=== PATIENT | male | born 1940 | race Caucasian/White ===

== ENCOUNTER 2021-05-05 14:00 | Emergency (ER) | payer OTHER, MEDICARE, SELFPAY ==
[2021-05-05 14:03] VITALS: BP 148/110; PULSE 97; RESP 16; TEMP 37.1; O2SAT 98; BMI 25.9
--- NOTE | 2021-05-05 14:47 | EKG12_ITS ---
Test Reason : CP Blood Pressure : / mmHG Vent. Rate : 091 BPM Atrial Rate : 256 BPM P-R Int : 000 ms QRS Dur : 078 ms QT Int : 358 ms P-R-T Axes : 000 036 047 degrees QTc Int : 440 ms Atrial flutter with variable A-V block Nonspecific ST and T wave abnormality Abnormal ECG Confirmed by BYRON SILVERIO, ORALIA ([id number]), features editor LON HAGEN ([id number]) on 05/08/2021 10:00:35 AM Referred By: KATELYNN Confirmed By:ORALIA MATTHEWS MD
--- NOTE | 2021-05-05 14:48 | ED.VIS.CHEST ---
HPI History of Present Illness Chief Complaint: Chest Pain Informant: patient Onset/Context/Timing Onset: Today Activity at onset: - (Woke up with symptoms this morning more than 3 hours ago) Timing: Continuous Quality: Positive for Aching Location: Right Parasternal Current Severity: Moderate Maximum Severity: Moderate Worsened By: Breathing (Deep inspiration); Not Worsened By Exertion Relieved By: Nothing Associated Symptoms: Positive for Acid Reflux (Gets frequently including last night before he went to bed) and - (Had chills earlier but was in air conditioning); Negative for Nausea, Vomiting, Diaphoresis, Dyspnea, Cough, Lightheadedness and Palpitations Narrative Narrative: Patient states he had surgery almost 1.5 years ago in his abdomen and has had reflux going from his epigastrium up his chest since then almost daily he takes a lot of Mylanta or Maalox and Pepto-Bismol for it, and so he is constipated most of the time, states that he frequently has chest discomfort because of that but this was different this morning. It has somewhat of a pleuritic nature to it, he denies any dyspnea. No recent hospitalization, travel out of the area, surgery. No history of DVT or PE. Takes a baby aspirin because he had a stent 5 or 6 years ago, but no anticoagulants. States he had a minor cough this morning but nothing major, denies any recent fevers or chills. PE Risk Factors: Negative for Recent Travel/Surgery, Recent Immobilization, Prior DVT or PE, Cancer and OCP + Smoking + >/=35 PFSH PFSH Medical History (Updated 05/05/21 @ 17:[address] Nicanor Stout MD) CAD (coronary artery disease) Depression Hyperlipidemia Hypertension Overweight (BMI 25.0-29.9) Posttraumatic stress disorder Stage 3b chronic kidney disease Home Medications amoxicillin-pot clavulanate [Augmentin] 1 tab PO BID #20 tab 05/05/21 [Rx Last Taken Unknown] apixaban [Eliquis] 5 mg PO BID #74 tab 05/05/21 [Rx Last Taken Unknown] aspirin 81 mg PO DAILY 05/05/21 [History Last Taken 05/05/21] atenolol 50 mg PO DAILY 05/05/21 [History Last Taken 05/05/21] bupropion HCl 150 mg PO BID 05/05/21 [History Last Taken 05/05/21] cholecalciferol (vitamin D3) [Vitamin D3] 100 mcg PO DAILY 05/05/21 [History Last Taken 05/05/21] diltiazem HCl 300 mg PO DAILY 05/05/21 [History Last Taken Unknown] losartan 25 mg PO DAILY 05/05/21 [History Last Taken 05/04/21] potassium chloride 10 meq PO DAILY 05/05/21 [History Last Taken 05/05/21] sertraline 50 mg PO DAILY 05/05/21 [History Last Taken 05/05/21] simvastatin 80 mg PO DAILY 05/05/21 [History Last Taken 05/04/21] tramadol 50 mg PO TID PRN 05/05/21 [History Last Taken 05/04/21] trazodone 50 mg PO DAILY 05/05/21 [History Last Taken 05/04/21] vitamin Y34-[id number] acid 1 tab PO DAILY 05/05/21 [History Last Taken 05/05/21] zolpidem 10 mg PO QHS 05/05/21 [History Last Taken 05/04/21] Allergy/AdvReac Type Severity Reaction Status Date / Time atorvastatin Allergy Itching Verified 05/05/21 14:02 Surgical History Stented coronary artery Social History Smoking Status: Never smoker ROS ROS ED Constitutional Constitutional ED: Denies chills or fever(s) Eyes Eyes: Denies change in vision or diplopia ENT ENT ED: Denies rhinorrhea or sore throat Cardiovascular Cardiovascular: Reports as per HPI and chest pain; Denies dizziness, orthopnea, palpitations or pedal edema Respiratory/Chest Respiratory/Chest: Reports as per HPI and cough; Denies dyspnea or orthopnea Gastrointestinal Gastrointestinal: Denies abdominal pain, diarrhea, nausea or vomiting Genitourinary Genitourinary ED: Denies dysuria or hematuria Musculoskeletal Musculoskeletal: Denies back pain, extremity pain or neck pain Integumentary Denies abscess or rash Neurologic Neurologic: Denies headache(s), paresthesias or weakness Psychiatric Psychiatric: Denies anxiety or suicidal thoughts EXAM Physical Exam Const Vital Signs: 05/05/21 14:03 05/05/21 14:08 05/05/21 14:49 Temperature 98.8 F Temperature Source Temporal Pulse Rate 97 Respiratory Rate 16 Respiratory Effort Normal Non-Labored Blood Pressure 148/110 H Blood Pressure Mean 122 Pulse Ox 98 Oxygen Delivery Method Room Air Room Air 05/05/21 15:23 05/05/21 16:34 05/05/21 17:15 Temperature Temperature Source Pulse Rate 73 69 72 Respiratory Rate 20 H 19 H 18 Respiratory Effort Blood Pressure 113/78 128/59 H 120/64 Blood Pressure Mean 89 82 82 Pulse Ox 97 97 97 Oxygen Delivery Method Room Air Room Air Room Air Positive well nourished and well developed General Appearance ED: well developed and NAD HEENT Reports moist mucous membranes normocephalic and atraumatic Eyes PERRL and EOMs intact bilaterally Neck full ROM and supple Resp normal respiratory effort and clear to auscultation bilaterally Cardio no murmurs Rate: other Other Details: Heart rate not tachycardic; rhythm occasionally irregular but mostly regular Rhythm: abnormal rhythm GI non-tender and non-distended Auscultation: normoactive bowel sounds Palpation: soft Back/Spine no CVA tenderness General Back: other FROM Extremity normal to inspection, no calf tenderness and no pedal edema General Extremety ED: Negative for edema, pulses abnormal or tenderness General Extremity: Negative for edema or pulses abnormal Neuro oriented x3, CN's II-XII intact bilaterally and no sensory deficits noted Sensorium / Orientation: awake and alert Motor Exam: strength 5/5 throughout Skin no rashes or lesions noted and no wounds Heart Score History: Slightly/Non-Suspicious ECG: Nonspecific Repolarization Age: >/= 65 years Risk Factors: >/= 3 Risk Factors or History of CAD Troponin: </= Normal Limit Score: 5 MDM MDM MDM Narrative Medical decision making narrative: Troponin is normal D-dimer elevated, which was ordered since the patient has pleuritic symptoms. Chest x-ray shows concern for a mass, so CT angiography was performed to rule out pulmonary embolism to further evaluate the abnormality on the right upper lobe. As below, consistent with infiltrate. Started on antibiotics, Rocephin. He is well-appearing, meets no criteria for sepsis, therefore cultures and lactic acid are not indicated at this time. Discussed with cardiology Dr. Molina; since patient is on metoprolol and diltiazem, which is likely responsible for him being rate controlled, and agrees that his chest discomfort is likely related to his pneumonia and not his heart, the patient may follow-up as an outpatient unless something changes. I do not think he needs to be admitted with regards to his pneumonia. Therefore I am comfortable discharging him on Eliquis since he is not a high fall risk clinically. We will discharge him on Augmentin and Eliquis, advised close outpatient follow-up with his doctor with regards to his pneumonia for recheck of his vital signs and pulse oximetry, as well as cardiology as above. Patient is comfortable with that plan. Lab Data Attestation: I reviewed the patient's lab results. Labs: Laboratory Results - last 24 hr 05/05/21 05/05/21 05/05/21 14:08 14:08 14:57 WBC 17.6 H RBC 4.64 Hgb 12.5 L Hct 39.0 L MCV 84.1 MCH 26.9 L MCHC 32.1 RDW Std Deviation 39.9 RDW Coeff of [place]ona 13.1 Plt Count 233 MPV 9.9 Immature Gran % (Auto) 0.700 Neut % (Auto) 88.6 H Lymph % (Auto) 3.6 L [place] % (Auto) 6.8 Eos % (Auto) 0.1 Baso % (Auto) 0.2 Absolute Neuts (auto) 15.6 H Absolute Lymphs (auto) 0.64 L Nucleated RBC % 0 APTT 28.5 D-Dimer Quant (PE/DVT) 1.61 H* Sodium 132 L Potassium 3.7 Chloride 100 Carbon Dioxide 26.0 Anion Gap 6 BUN 14 Creatinine 1.48 H Estim Creat Clear Calc 37.12 Est GFR (MDRD) Af Amer 59 L Est GFR (MDRD) Non-Af 49 L BUN/Creatinine Ratio 9.5 L Glucose 176 H Calcium 8.2 L Troponin I High Sens 27.8 Radiography Diagnostic Testing: Radiology Impression Chest X-Ray 05/05/21 14:54 IMPRESSION: 5.5 cm x 6.6 cm masslike infiltrate in the right upper lobe as described. Correlation with CT scan is recommended for further evaluation. Electronically Signed: Bong Leone MD at 15:17 EDT , Service support , Chest CTA 05/05/21 15:53 IMPRESSION: 1. No evidence of pulmonary embolus. 2. Atherosclerotic changes of the thoracic aorta without aneurysm or dissection. 3. Mixed interstitial and alveolar right upper lobe pulmonary infiltrate. 4. Minimal groundglass infiltrates in both lower lobes. 5. Atherosclerotic changes of the coronary arteries. 6. Evidence of old granulomatous disease. Electronically Signed: Olvin Doll DO at 16:41 EDT Tel [phone], Service support , EKG Initial EKG: Interpretation: No Acute Injury Pattern and Atrial Flutter Prior: No Prior Discharge Plan Triage Chief Complaint: Chest Pain ED Provider: Nicanor Stout Dx/Rx/DC Orders Clinical Impression: Atrial flutter, Pneumonia Instructions: ED Atrial Flutter, ED Pneumonia (Adult) Prescriptions: New Eliquis 5 MG tablet 5 mg PO BID Qty: 74 RF: 0 amoxicillin-pot clavulanate [Augmentin] 875-125 mg tablet 1 tab PO BID Qty: 20 RF: 0 No Action bupropion HCl 150 mg Tablet Sustained-Release 12 Hr 150 mg PO BID RF: 0 potassium chloride 10 mEq capsule, extended release 10 meq PO DAILY RF: 0 trazodone 50 mg Tablet 50 mg PO DAILY RF: 0 simvastatin 80 mg Tablet 80 mg PO DAILY RF: 0 tramadol 50 mg Tablet 50 mg PO TID PRN (Reason: Pain) RF: 0 losartan 25 mg Tablet 25 mg PO DAILY RF: 0 aspirin 81 mg Tablet 81 mg PO DAILY RF: 0 sertraline 50 mg Tablet 50 mg PO DAILY RF: 0 atenolol 50 mg Tablet 50 mg PO DAILY RF: 0 Vitamin D3 100 mcg (4,000 unit) Capsule 100 mcg PO DAILY RF: 0 vitamin G08-sueau acid 2,500-400 mcg Tablet,Disintegrating 1 tab PO DAILY RF: 0 zolpidem 10 mg tablet 10 mg PO QHS RF: 0 diltiazem HCl 300 mg tablet extended release 24 hr 300 mg PO DAILY RF: 0 Primary Care Provider: Christian Robbins Referrals: Christian Robbins MD [Primary Care Provider] - 3-5 Days (for recheck of vital signs and condition with regards to your right sided pneumonia) Matt Molina MD [STAFF PHYSICIAN] - (call for appt ) Disposition Disposition: Home, Self Care
--- NOTE | 2021-05-05 14:54 | RAD_ITS ---
STUDY: X-RAY CHEST REASON FOR EXAM: Male, 80 years old. Chest pain TECHNIQUE: Single AP portable view of the chest. COMPARISON: None. FINDINGS: EKG electrodes are seen. There is a 5.5 cm x 6.6 cm masslike lesion in the right upper lobe. This may represent either a pulmonary mass versus infiltrate. Mild increased markings in the lateral aspect of the right lower lobe with blunting of the right costophrenic angle. The lungs are clear and expanded. There is no demonstrated pleural abnormality. Normal size heart. Normal mediastinum and hansel. Normal visualized pulmonary arteries. Normal visualized aortic arch and descending thoracic aorta. Normal visualized thoracic spine. Normal visualized ribs, clavicles, and shoulders. There is no demonstrated abnormality of the visualized soft tissue structures of the upper abdomen. RAD/Chest 1 View (Portable) IMPRESSION: 5.5 cm x 6.6 cm masslike infiltrate in the right upper lobe as described. Correlation with CT scan is recommended for further evaluation. Electronically Signed: Bong Leone MD at 15:17 EDT , Service support ,
[2021-05-05 14:58] LABS: Absolute Lymphocyte Count 0.64 X10^3/uL (0.83-4.51); Absolute Neutrophil Count 15.6 X10^3/uL (2.0-7.7); Basophil# 0.04 X10^3/uL; Basophil% 0.2 % (0-1); Eosinophil# 0.02 X10^3/uL; Eosinophils% 0.1 % (0-5); Hemoglobin 12.5 g/dL (13.0-16.5); Lymphocyte # 0.64 X10^3/ul (0.83-4.51); Lymphocyte % 3.6 % (19-41); Mean Corp Hgb Conc 32.1 g/dL (32-36); Mean Corpuscular Hgb 26.9 pg (27.0-32.0); Mean Corpuscular Volume 84.1 fL (80-94); Mean Platelet Vol. 9.9 fl (6.2-12.0); Monocyte# 1.19 X10^3/uL; Monocyte% 6.8 % (0-10); NRBC Flagged by Analyzer 0 % (0-5); Neutrophil # 15.55 X10^3/uL (2.7-7.7); Neutrophil % 88.6 % (47-70); Platelet Count 233 K/mm3 (150-450); RBC Distribution Width CV 13.1 % (11.6-14.6); RBC Distribution Width SD 39.9 fl (35.1-43.9); Red Blood Count 4.64 M/mm3 (4.6-6.2); White Blood Count 17.6 K/mm3 (4.4-11.0)
[2021-05-05] MEDS: 0.9% Normal Saline 1,000 ML 150 ML IV (15:09)
[2021-05-05 15:10] LABS: Anion Gap 6 (5-15); BUN 14 mg/dL (7-18); BUN/Creat Ratio 9.5 RATIO (10-20); Calcium,Total 8.2 mg/dL (8.5-10.1); Chloride 100 mmol/L (98-107); Creatinine, Serum 1.48 mg/dL (0.70-1.30); EST Glomerular Filtration Rate 49 mL/min (>60); Est Glom Filt Rate - Afr Amer 59 mL/min (>60); Estimated Creatinine Clearance 37.12 ml/min; Glucose 176 mg/dL (74-106); Potassium 3.7 mmol/L (3.5-5.1); Sodium Level 132 mmol/L (136-145); Troponin-I HS 27.8 pg/mL (3.0-78.5)
[2021-05-05 15:12] LABS: Partial Thromboplast Time 28.5 Seconds (24.1-36.2)
[2021-05-05 15:16] LABS: D-Dimer Quantitative (DVT/PE) 1.61 FEU/ug/m (0.27-0.49)
[2021-05-05 15:23] VITALS: BP 113/78; PULSE 73; RESP 20; O2SAT 97
--- NOTE | 2021-05-05 15:53 | CT_ITS ---
STUDY: CTA CHEST REASON FOR EXAM: Male, 80 years old. Chest pain. Abnormal d-dimer. Abnormal chest x-ray. RADIATION DOSAGE (If Supplied By Facility): CTDIvol = ( 12.87 ) mGy, DLP = ( 360.94 ) mGycm TECHNIQUE: The examination was performed with the intravenous administration of IV 100mL Isovue-370. Post-processing of the angiographic images was performed, with multiplanar reformation and 3D reconstruction. Individualized dose optimization techniques were used for this CT. COMPARISON: Chest, 05/05/2021. FINDINGS: Normal enhancement of the main pulmonary artery and right and left pulmonary arteries. Normal enhancement of the bilateral peripheral pulmonary arteries. There is no demonstrated pulmonary embolism. Mild atherosclerotic changes of the thoracic aorta without aneurysm. There is no demonstrated aortic dissection. Normal heart and pericardium. There are calcifications of the coronary arteries. There are calcified precarinal and subcarinal lymph nodes. Normal hilar regions. Normal visualized trachea and bronchi. The lungs are well expanded. There is diffuse interstitial and alveolar infiltrates in the right upper lobe. There is no focal mass. Minimal groundglass infiltrate is seen in the anterior bilateral lower lobes along the oblique fissures. Normal pleura. Normal chest wall structures. There are degenerative changes of thoracic spine. There are calcified granulomata in spleen. Tiny nonobstructing calculus in the upper right kidney. The upper abdomen is otherwise grossly normal. CT/CTA Chest W/WO Contrast IMPRESSION: 1. No evidence of pulmonary embolus. 2. Atherosclerotic changes of the thoracic aorta without aneurysm or dissection. 3. Mixed interstitial and alveolar right upper lobe pulmonary infiltrate. 4. Minimal groundglass infiltrates in both lower lobes. 5. Atherosclerotic changes of the coronary arteries. 6. Evidence of old granulomatous disease. Electronically Signed: Olvin Doll DO at 16:41 EDT Tel [phone], Service support ,
--- NOTE | 2021-05-05 16:08 | HP.PCM.HOS_ITS ---
HPI - General HPI Narrative ALEXANDRA FERREIRA, is a 80 M who presented with the chief complaint of chest pain. The patient reported on admission that he woke with the symptoms approximately 3 hours prior to presentation and he has had continuous aching right parasternal pain that is pleuritic in nature. He reports deep breathing exacerbates his symptoms and they are not exertional at all. He has had no relief of his pain since it started this morning. He denies any recent hospitalizations, travel, surgery, dyspnea, diaphoresis, nausea or vomiting. He has a long history of GERD and epigastric pain since he had an abdominal surgery approximately 1.5 years ago but the symptoms are significantly different. He does have a history of coronary artery disease and had a stent placed 5 to 6 years ago. He complains of a mild cough that is nonproductive and that was present this morning on awakening as well. FORMERLY [facility], 1928–1983 Medical History (Updated 05/05/21 @ 16:[address] Kim Dodson DO) CAD (coronary artery disease) Depression Hyperlipidemia Hypertension Overweight (BMI 25.0-29.9) Posttraumatic stress disorder Stage 3b chronic kidney disease Home Medications aspirin 81 mg PO DAILY 05/05/21 [History Last Taken 05/05/21] atenolol 50 mg PO DAILY 05/05/21 [History Last Taken 05/05/21] bupropion HCl 150 mg PO BID 05/05/21 [History Last Taken 05/05/21] cholecalciferol (vitamin D3) [Vitamin D3] 100 mcg PO DAILY 05/05/21 [History Last Taken 05/05/21] diltiazem HCl 300 mg PO DAILY 05/05/21 [History Last Taken Unknown] losartan 25 mg PO DAILY 05/05/21 [History Last Taken 05/04/21] potassium chloride 10 meq PO DAILY 05/05/21 [History Last Taken 05/05/21] sertraline 50 mg PO DAILY 05/05/21 [History Last Taken 05/05/21] simvastatin 80 mg PO DAILY 05/05/21 [History Last Taken 05/04/21] tramadol 50 mg PO TID PRN 05/05/21 [History Last Taken 05/04/21] trazodone 50 mg PO DAILY 05/05/21 [History Last Taken 05/04/21] vitamin A41-nffvj acid 1 tab PO DAILY 05/05/21 [History Last Taken 05/05/21] zolpidem 10 mg PO QHS 05/05/21 [History Last Taken 05/04/21] Allergy/AdvReac Type Severity Reaction Status Date / Time atorvastatin Allergy Itching Verified 05/05/21 14:02 Surgical History Stented coronary artery Social History Smoking Status: Never smoker Vital Signs Vital Signs Vital Signs: 05/05/21 14:03 05/05/21 14:08 05/05/21 14:49 Temperature 98.8 F Temperature Source Temporal Pulse Rate 97 Respiratory Rate 16 Respiratory Effort Normal Non-Labored Blood Pressure 148/110 H Blood Pressure Mean 122 Pulse Ox 98 Oxygen Delivery Method Room Air Room Air 05/05/21 15:23 Temperature Temperature Source Pulse Rate 73 Respiratory Rate 20 H Respiratory Effort Blood Pressure 113/78 Blood Pressure Mean 89 Pulse Ox 97 Oxygen Delivery Method Room Air Weight Weight: 72.8 kg Body Mass Index (BMI) 25.9 Results Lab / Micro Data Attestation: I reviewed the patient's lab results. Result Diagrams: 05/05/21 14:08 05/05/21 14:08 Labs: Laboratory Results - last 24 hr 05/05/21 14:08: WBC 17.6 H, RBC 4.64, Hgb 12.5 L, Hct 39.0 L, MCV 84.1, MCH 26.9 L, MCHC 32.1, RDW Std Deviation 39.9, RDW Coeff of Leona 13.1, Plt Count 233, MPV 9.9, Immature Gran % (Auto) 0.700, Neut % (Auto) 88.6 H, Lymph % (Auto) 3.6 L, [place] % (Auto) 6.8, Eos % (Auto) 0.1, Baso % (Auto) 0.2, Absolute Neuts (auto) 15.6 H, Absolute Lymphs (auto) 0.64 L, Nucleated RBC % 0 05/05/21 14:08: Sodium 132 L, Potassium 3.7, Chloride 100, Carbon Dioxide 26.0, Anion Gap 6, BUN 14, Creatinine 1.48 H, Estim Creat Clear Calc 37.12, Est GFR (MDRD) Af Amer 59 L, Est GFR (MDRD) Non-Af 49 L, BUN/Creatinine Ratio 9.5 L, Glucose 176 H, Calcium 8.2 L, Troponin I High Sens 27.8 05/05/21 14:57: APTT 28.5, D-Dimer Quant (PE/DVT) 1.61 H* Radiology Impression Chest X-Ray 05/05/21 14:54 IMPRESSION: 5.5 cm x 6.6 cm masslike infiltrate in the right upper lobe as described. Correlation with CT scan is recommended for further evaluation. Electronically Signed: Bong Leone MD at 15:17 EDT , Service support , Assessment & Plan Assessment/Plan (1) Leukocytosis: (2) Anemia: (3) Elevated d-dimer: (4) Hyponatremia: (5) Stage 3b chronic kidney disease: (6) Insomnia: (7) Hyperlipidemia: (8) Hyperglycemia: PLAN: Right upper lobe community-acquired pneumonia -Start a Zithromax and ceftriaxone -Sputum culture if able -Urine Legionella and strep pneumo antigens -IS -Acapella -Pulmonary toilet -Pulmonal oxygen as needed D-dimer elevation -CTA chest on emergency department shows--> large right upper lobe infiltrate Hyponatremia -May be related to the above -Does appear to be euvolemic at this time -Check urine and serum osmolality as well as urine sodium--> if does not trend up -Most likely related to pulmonary process Hyperglycemia -No diagnosis of diabetes at baseline -Check hemoglobin A1c -Blood glucose on BMP was 176 Leukocytosis CAD/HTN/HPL/atrial flutter -Stents placed 5 to 6 years ago--> patient unclear which arteries were stented and the procedure was not performed at this institution -Continue aspirin -Continue atenolol 50 mg daily -Continue diltiazem 300 mg p.o. daily -Continue losartan 25 mg daily -Continue simvastatin -EKG done and shows--> -High-sensitivity troponin is within normal limits History of post traumatic stress disorder -Continue Zoloft 50 mg -Continue trazodone 50 mg -Continue Wellbutrin 150 mg twice daily Insomnia -Continue Ambien DVT prophylaxis - CODE STATUS -
[2021-05-05] MEDS: 0.9% Normal Saline 1,000 ML 999 ML IV (16:32)
[2021-05-05 16:34] VITALS: BP 128/59; PULSE 69; RESP 19; O2SAT 97
[2021-05-05 17:15] VITALS: BP 120/64; PULSE 72; RESP 18; O2SAT 97
[2021-05-05] MEDS: Ceftriaxone 1 GM/50 ML BAG IV (17:38)
[2021-05-05 18:12] VITALS: BP 105/59; PULSE 84; RESP 20; O2SAT 99
[2021-05-05 18:22] LABS: Thyroid Stim Hormone (TSH) 2.38 uIU/mL (0.358-3.74)
== END 2021-05-05 18:24 | disposition home or self-care (01) ==
PROVIDERS: Emergency Provider Emergency Medicine; PCP Family Medicine
DX: J18.9 Pneumonia, unspecified organism (principal); I48.92 Unspecified atrial flutter; R79.1 Abnormal coagulation profile; E87.1 Hypo-osmolality and hyponatremia; R73.9 Hyperglycemia, unspecified; D72.829 Elevated white blood cell count, unspecified; F43.10 Post-traumatic stress disorder, unspecified; G47.00 Insomnia, unspecified; I25.10 Atherosclerotic heart disease of native coronary artery without angina pectoris; F32.9 Major depressive disorder, single episode, unspecified; E78.5 Hyperlipidemia, unspecified; I12.9 Hypertensive chronic kidney disease with stage 1 through stage 4 chronic kidney disease, or unspecified chronic kidney disease; N18.32 Chronic kidney disease, stage 3b; Z95.5 Presence of coronary angioplasty implant and graft; Z79.02 Long term (current) use of antithrombotics/antiplatelets; Z79.899 Other long term (current) drug therapy
CPT/HCPCS: 71045; 71275; 80048; 84443; 84484; 85025; 85379; 85730; 93005; 96361; 96365; 99283; J7030; Q9967; A4216

== ENCOUNTER 2022-06-02 22:50 | Emergency (ER) | payer OTHER, SELFPAY ==
[2022-06-02 22:51] VITALS: BP 130/78; PULSE 92; RESP 18; TEMP 37.3; O2SAT 99; BMI 24.3
--- NOTE | 2022-06-02 23:17 | RAD_ITS ---
STUDY: X-RAY - PELVIS AND LEFT HIP REASON FOR EXAM: Male, 81 years old. pain TECHNIQUE: 3 views of the pelvis and hip. COMPARISON: None. FINDINGS: Mild degenerative change of the left hip. No acute fracture or dislocation. Degenerative change of the lower lumbar spine and right hip RAD/HIP, UNI W/ Pelvis 2-3 Views IMPRESSION: No acute findings Electronically Signed: Boogie Crow DO at 0:17 EDT ,
--- NOTE | 2022-06-02 23:17 | RAD_ITS ---
STUDY: X-RAY - UNILATERAL RIBS ( LEFT ) WITH CHEST REASON FOR EXAM: Male, 81 years old. injury TECHNIQUE - RIBS: 4 view(s) of the ribs. TECHNIQUE - CHEST: Single frontal view of the chest. COMPARISON: None. FINDINGS - RIBS: Normal visualized ribs without a demonstrated fracture. FINDINGS - CHEST: The lungs are clear and expanded. There is no demonstrated pleural abnormality. Normal size heart. Normal mediastinum and hansel. Normal visualized pulmonary arteries. Normal visualized aortic arch and descending thoracic aorta. Normal visualized thoracic spine. Normal visualized ribs, clavicles, and shoulders. There is no demonstrated abnormality of the visualized soft tissue structures of the upper abdomen. RAD/Ribs Uni Min 3V w/PA Chest IMPRESSION: RIBS: Normal x-ray examination of the ribs. CHEST: Normal x-ray examination of the chest. Electronically Signed: Boogie Crow DO at 0:18 EDT ,
--- NOTE | 2022-06-02 23:17 | CT_ITS ---
INDICATION: fall on thinners EXAMINATION: CT Head or Brain W/O Contrast Injection TECHNIQUE: Multiple axial images were obtained of the head without intravenous contrast. A radiation dose optimization technique was used for this scan. IV Contrast dosage and agent: None. COMPARISON: None FINDINGS: BRAIN PARENCHYMA: No intra- or extra-axial hemorrhage. No evidence of acute major territorial infarct. No intracranial mass or mass effect. Mild deep cerebral white matter lucencies are present. Chronic cerebral involutional changes. Tiny basal ganglia calcifications noted. CSF SPACES: Prominent cerebral sulci and extraaxial spaces secondary to involutional changes. No hydrocephalus. Basal cisterns are patent. Intracranial atherosclerotic calcifications. CALVARIUM, SKULL BASE, PARANASAL SINUSES AND MASTOID AIR CELLS: Calvarium is intact. No acute findings within paranasal sinuses. Mastoid air cells are well-pneumatized. ORBITS: Unremarkable orbits and globes. CT/Brain/Head without Contrast IMPRESSION: Chronic involutional and white matter changes. No evidence of acute intracranial abnormality. Electronically Signed: Ilan Ellis MD at 0:14 EDT ,
--- NOTE | 2022-06-02 23:20 | EDS_ITS ---
HPI History of Present Illness Chief Complaint: Fall Narrative Narrative: Patient is a 81-year-old male with past medical history of hypertension hyperlipidemia and atrial flutter currently on Eliquis. He states around 830 this evening he was putting up shelves in his garage and he was 2 steps up on a stepladder and as he was stepping down the ladder kicked out and he fell landing on his left side. He denies striking his head or any loss of consciousness but does admit to blood thinner use because of his history of heart dysrhythmia. He states he was on the ground for approximately 15 minutes and was able to get up and gently ambulate to a chair which she laid on for the next few hours. He states the pain in his ribs and hip were not improving and secondary to this he presents for evaluation. [facility] Medical History Atherosclerotic heart disease of [place] coronary artery without angina pectoris CAD (coronary artery disease) Depression Essential hypertension GERD (gastroesophageal reflux disease) History of GI bleed History of small bowel obstruction Hyperlipidemia Hypertension Mesenteric mass Overweight (BMI 25.0-29.9) Posttraumatic stress disorder Pure hypercholesterolemia Stage 3b chronic kidney disease Stented coronary artery (~1995) Home Medications apixaban 5 mg tablet (Eliquis) 5 mg PO BID #74 tabs 05/05/21 [Rx Last Taken Unknown] aspirin 81 mg tablet 81 mg PO DAILY 05/05/21 [History Last Taken 05/05/21] atenolol 50 mg tablet 50 mg PO DAILY 05/05/21 [History Last Taken 05/05/21] bupropion HCl 150 mg tablet,12 hr sustained-release 150 mg PO BID 05/05/21 [History Last Taken 05/05/21] diltiazem HCl 300 mg tablet,extended release 24 hr 300 mg PO DAILY BP 05/05/21 [History Last Taken Unknown] losartan 25 mg tablet 25 mg PO DAILY 05/05/21 [History Last Taken 05/04/21] potassium chloride 10 mEq capsule,extended release 10 meq PO DAILY 05/05/21 [History Last Taken 05/05/21] sertraline 50 mg tablet 50 mg PO DAILY 05/05/21 [History Last Taken 05/05/21] simvastatin 80 mg tablet 80 mg PO DAILY 05/05/21 [History Last Taken 05/04/21] tramadol 50 mg tablet 50 mg PO TID PRN Pain 05/05/21 [History Last Taken 05/04/21] vitamin B12 2,500 mcg-folic acid 400 mcg disintegrating tablet 1 tab PO DAILY 05/05/21 [History Last Taken 05/05/21] zolpidem 10 mg tablet 10 mg PO QHS SLEEP 05/05/21 [History Last Taken 05/04/21] albuterol sulfate 90 mcg/actuation aerosol inhaler (Proventil HFA) 2 puff inhalation Q6H PRN Shortness Of Breath Or Wheezing 07/08/21 [History Last Taken Unknown] cholecalciferol (vitamin D3) 25 mcg (1,000 unit) tablet 75 mcg PO DAILY 07/08/21 [History Last Taken Unknown] nitroglycerin 0.4 mg sublingual tablet 0.4 mg sublingual Q5-15M PRN Chest Pain 07/08/21 [History Last Taken Unknown] omega-3 fatty acids 1,000 mg capsule (Fish Oil Concentrate) 1,000 mg PO DAILY 07/08/21 [History Last Taken Unknown] pantoprazole 40 mg tablet,delayed release 40 mg PO DAILY 07/08/21 [History Last Taken Unknown] trazodone 50 mg tablet 25 mg PO QHS PRN Sleep 07/08/21 [History Last Taken Unknown] vitamin E (dl, acetate) 180 mg (400 unit) capsule 180 mg PO DAILY #1 cap 07/08/21 [Rx Last Taken Unknown] Allergy/AdvReac Type Severity Reaction Status Date / Time atorvastatin Allergy Itching Verified 06/02/22 22:58 Family History (Updated 07/08/21 @ 09:44 by Lorenza Gibbons) Father CVA (cerebral vascular accident) Surgical History History of back surgery History of carotid endarterectomy (~2003) History of cholecystectomy History of hernia repair Presence of coronary angioplasty implant and graft (~1995) Social History (Updated 07/08/21 @ 09:45 by Lorenza Gibbons) Smoking Status: Former smoker alcohol intake: never ROS ROS ED Constitutional Constitutional ED: Denies chills or fever(s) Eyes Eyes: Denies change in vision ENT ENT ED: Denies sore throat Cardiovascular Cardiovascular: Reports other Details: Positive chest wall pain ; Denies chest pain Respiratory/Chest Respiratory/Chest: Denies cough or dyspnea Gastrointestinal Gastrointestinal: Denies abdominal pain, diarrhea, nausea or vomiting Genitourinary Genitourinary ED: Denies dysuria Musculoskeletal Musculoskeletal: Reports other Details: Positive left chest wall/rib pain and left hip ; Denies back pain, myalgias or neck pain Integumentary Denies Abrasions or rash Neurologic Neurologic: Denies headache(s) or paresthesias Hematologic/Lymphatic Hematologic/Lymphatic: Reports easy bleeding and easy bruising EXAM Physical Exam Const Vital Signs: 06/02/22 22:51 06/02/22 23:00 06/03/22 03:33 Temperature 99.1 F Temperature Source Oral Pulse Rate 92 65 Respiratory Rate 18 19 H Respiratory Effort Normal Blood Pressure 130/78 H 147/73 H Blood Pressure Mean 95 97 Pulse Ox 99 100 Oxygen Delivery Method Room Air Room Air Room Air Positive well nourished and well developed General Appearance ED: well developed HEENT HEENT Narrative: No signs of depressed or basilar skull fracture Eyes PERRL and EOMs intact bilaterally Neck supple Neck Narrative: No bony deformity or step-off of the cervical spine no midline pain on palpation Chest Wall Chest Narrative: Patient has pain on palpation along the left mid axillary to posterior region of the ribs section 6-8 without bony deformity or crepitance Resp normal respiratory effort and clear to auscultation bilaterally Cardio regular rate and regular rhythm GI normal to inspection, nondistended, normoactive bowel sounds, non-tender and non-distended GI Narrative: No distention ecchymosis or fluid wave noted no abdominal pain with palpation or pulsatile mass Auscultation: normoactive bowel sounds Palpation: soft Back/Spine Back/Spine Narrative: No bony deformity or step-off of the thoracic or lumbar spine no midline pain on palpation Extremity Extremity Narrative: Pelvis is stable there is no shortening or external rotation of either lower extremity. Patient does have pain on palpation along the left greater trochanter without obvious bony deformity or joint effusion. Neuro oriented x3 and CN's II-XII intact bilaterally Sensorium / Orientation: alert Psych mental status grossly normal Skin no rashes or lesions noted Skin Narrative: No abrasions or ecchymosis noted MDM MDM MDM Narrative Medical decision making narrative: Patient presented to the ER awake and alert with stable vitals and no obvious signs of trauma. He reported mechanical fall so I felt no need for cardiac or syncope work-up. As he is on Eliquis for history of atrial flutter he had a head CT obtained but as he did not have any midline cervical spine tenderness and was able to move his neck in all directions I did not feel an emergent CT cervical spine was warranted. He had concern for rib fracture and pneumothorax with the pain to the left sided ribs and therefore x-rays of his ribs and pelvis/hip were obtained. Imaging studies revealed no obvious rib fracture hip/pelvis fracture or pneumothorax. The patient was given morphine and then Dilaudid known he had minimal improvement of pain. As x-rays were negative we attempted ambulation in the ER. Patient was able to stand but could only take a few steps and had severe pain while doing so and his gait was unsteady. Secondary to his did not feel it was safe for him to return home. Therefore this time as he cannot ambulate from persistent pain despite having morphine and Dilaudid and negative x-rays added a CT of his chest. This showed nondisplaced left seventh eighth and ninth rib fractures as well as a small pneumothorax. Patient was placed on a few liters of nasal cannula oxygen for nitrogen washout. The case was discussed with general surgery on-call as this is technically trauma as he reported fall. General surgery does not feel comfortable keeping him at this facility as we are not a true trauma center. Therefore patient was informed of this and request transfer to [facility]. They were contacted and I do agree to accept the patient at this time. They do request that patient complete his imaging studies of his neck as well as abdomen and pelvis. Therefore these images were obtained and patient will be sent from ER to ER for further trauma evaluation. Please note the patient has remained hemodynamically stable for his entire ER stay Radiography Diagnostic Testing: Clinical Impression(s) from Imaging Studies Brain CT 06/02/22 23:17 IMPRESSION: Chronic involutional and white matter changes. No evidence of acute intracranial abnormality. Electronically Signed: Ilan Ellis MD at 0:14 EDT , Hip/Pelvis X-Ray 06/02/22 23:17 IMPRESSION: No acute findings Electronically Signed: Boogie Crow DO at 0:17 EDT Reading Location ID and State: [facility] / [place] Tel , Service support , Ribs w/Chest X-Ray 06/02/22 23:17 IMPRESSION: RIBS: Normal x-ray examination of the ribs. CHEST: Normal x-ray examination of the chest. Electronically Signed: Boogie Crow DO at 0:18 EDT Reading Location ID and State: [address] [place] [address] Tel , Service support , Chest CT 06/03/22 01:35 IMPRESSION: 1. Tiny left apical pneumothorax 2. Subtle nondisplaced left lateral seventh, eighth and ninth rib fractures 3. Partially visualized and heterogeneous mass with calcifications in the central mesentery. Follow-up CT abdomen and pelvis will be needed to further evaluate Electronically Signed: Boogie Crow DO at 2:28 EDT Reading Location ID and State: [facility] / [place] Tel , Service support , Discharge Plan Triage Chief Complaint: Fall ED Provider: Wilbert Hernández Dx/Rx/DC Orders Clinical Impression: Pneumothorax, closed, traumatic, Multiple fractures of ribs of left side, Current use of intermodal truck driver anticoagulation, Accidental fall, Chronic kidney disease Prescriptions: No Action bupropion HCl 150 mg Tablet Sustained-Release 12 Hr 150 mg PO BID potassium chloride 10 mEq capsule, extended release 10 meq PO DAILY Label Comments: TAKE 1 CAPSULE BY MOUTH ONCE DAILY WITH FOOD simvastatin 80 mg Tablet 80 mg PO DAILY tramadol 50 mg Tablet 50 mg PO TID PRN (Reason: Pain) losartan 25 mg Tablet 25 mg PO DAILY aspirin 81 mg Tablet 81 mg PO DAILY sertraline 50 mg Tablet 50 mg PO DAILY atenolol 50 mg Tablet 50 mg PO DAILY vitamin Q19-nzvca acid 2,500-400 mcg Tablet,Disintegrating 1 tab PO DAILY zolpidem 10 mg tablet 10 mg PO QHS diltiazem HCl 300 mg tablet extended release 24 hr 300 mg PO DAILY Label Comments: TAKE 1 TABLET BY MOUTH ONCE DAILY Eliquis 5 MG tablet 5 mg PO BID Qty: 74 0RF Rx Instructions: 10 mg twice a day for the first week. Then 5 mg twice a day. trazodone 50 mg tablet 25 mg PO QHS PRN (Reason: Sleep) pantoprazole 40 mg tablet,delayed release (DR/EC) 40 mg PO DAILY vitamin E (dl, acetate) 180 mg (400 unit) capsule 180 mg PO DAILY Qty: 1 0RF omega-3 fatty acids [Fish Oil Concentrate] 1,000 mg capsule 1,000 mg PO DAILY albuterol sulfate [Proventil HFA] 90 mcg/actuation HFA aerosol inhaler 2 puff inhalation Q6H PRN (Reason: Shortness Of Breath Or Wheezing) cholecalciferol (vitamin D3) 25 mcg (1,000 unit) tablet 75 mcg PO DAILY nitroglycerin 0.4 mg tablet, sublingual 0.4 mg sublingual Q5-15M PRN (Reason: Chest Pain) Rx Instructions: do not exceed 3 doses per episode Primary Care Provider: Christian Robbins Referrals: Christian Robbins MD [Primary Care Provider] - Disposition Disposition: Acute Care Hospital Discharge Location: [facility]
[2022-06-02] MEDS: Morphine 4 MG/ML Syringe IV (23:29)
[2022-06-02] MEDS: Ondansetron 4 MG/2 ML Vial IV (23:29)
[2022-06-03] MEDS: HYDROmorphone 1 MG/ML Syringe IV (00:12)
--- NOTE | 2022-06-03 01:35 | CT_ITS ---
INDICATION: chest pain EXAMINATION: CT CHEST WITHOUT CONTRAST - CT Chest W/O Contrast Injection TECHNIQUE: Helically acquired images were obtained of the chest. A radiation dose optimization technique was used for this scan. IV Contrast dosage and agent: None. COMPARISON: None. FINDINGS: LUNGS, PLEURA AND LARGE AIRWAYS: Tiny left apical pneumothorax. Lungs are clear. THYROID: No thyroid lesions. HEART AND PERICARDIUM: Heart size is normal. No pericardial effusion. CORONARY ARTERIES: Coronary artery calcification VESSELS: Thoracic aorta is not dilated. MEDIASTINUM AND AMANDO: No mediastinal or hilar adenopathy. Esophagus is unremarkable. No hiatal hernia. UPPER ABDOMEN: Partially visualized heterogeneous mass with calcifications in the central mesentery. Status post cholecystectomy. BONES: Subtle nondisplaced left lateral seventh, eighth and ninth rib fractures. Old healed left clavicle fracture CT/Chest without Contrast IMPRESSION: 1. Tiny left apical pneumothorax 2. Subtle nondisplaced left lateral seventh, eighth and ninth rib fractures 3. Partially visualized and heterogeneous mass with calcifications in the central mesentery. Follow-up CT abdomen and pelvis will be needed to further evaluate Electronically Signed: Boogie Crow DO at 2:28 EDT ,
[2022-06-03] MEDS: Orphenadrine 60 MG/2 ML Ampul IV (01:39)
[2022-06-03] MEDS: Ketorolac 15 MG/ML Vial IV (01:39)
[2022-06-03] MEDS: HYDROmorphone 0.5 MG/0.5 ML SYRINGE IV (03:21)
--- NOTE | 2022-06-03 03:30 | CT_ITS ---
STUDY: CT LUMBAR SPINE WITHOUT CONTRAST REASON FOR EXAM: Male, 81 years old. fall RADIATION DOSAGE (If Supplied By Facility): CTDIvol = ( 20.54 ) mGy, DLP = ( 725.22 ) mGycm TECHNIQUE: The patient was scanned in a multi detector CT scanner. High resolution transaxial imaging was performed. Images were obtained from T12 to S1. Sagittal and coronal images were reconstructed. Individualized dose optimization techniques were used for this CT. COMPARISON: None FINDINGS: Normal lumbar lordosis. There is no substantial scoliosis. Normal vertebrae of the lumbar spine. There is no demonstrated compression deformity or fracture of the visualized lumbar vertebrae. Moderate multilevel degenerative disc disease. Fusion hardware of L4-5, intact. No critical stenosis. Schmorl''s node of the inferior endplate L3. Normal visualized paraspinous soft tissue structures. CT/Spine Lumbar without Contrast IMPRESSION: Multilevel degenerative changes, as described above. Electronically Signed: Boogie Crow DO at 4:29 EDT ,
--- NOTE | 2022-06-03 03:30 | CT_ITS ---
STUDY: CT CERVICAL SPINE WITHOUT CONTRAST REASON FOR EXAM: Male, 81 years old. fall RADIATION DOSAGE (If Supplied By Facility): CTDIvol = ( 18.28 ) mGy, DLP = ( 407.38 ) mGycm TECHNIQUE: High resolution transaxial imaging was performed without contrast material. Sagittal and coronal images were reconstructed. Individualized dose optimization techniques were used for this CT. COMPARISON: None FINDINGS: Normal craniovertebral junction. Normal anterior atlantoaxial articulation. Normal odontoid process. Normal cervical lordosis. Normal vertebral bodies and posterior osseous elements. No acute fracture or listhesis. Moderate multilevel degenerative disc disease. No critical stenosis. Normal visualized soft tissue structures. Surgical clips in the right neck region CT/Spine Cervical without Contras IMPRESSION: Multilevel degenerative changes, as described above. Electronically Signed: Boogie Crow DO at 4:27 EDT ,
--- NOTE | 2022-06-03 03:30 | CT_ITS ---
STUDY: CT THORACIC SPINE WITHOUT CONTRAST REASON FOR EXAM: Male, 81 years old. fall RADIATION DOSAGE (If Supplied By Facility): CTDIvol = ( 19.60 ) mGy, DLP = ( 735.98 ) mGycm TECHNIQUE: The patient was scanned in a multi detector CT scanner. High resolution imaging was performed. Images were obtained from C6 to L2. Sagittal and coronal images were reconstructed. Individualized dose optimization techniques were used for this CT. COMPARISON: CT chest, abdomen and pelvis earlier FINDINGS: There is multilevel degenerative disc disease and cervical spondylosis. Normal kyphosis of the thoracic spine. There is no substantial scoliosis. There is multilevel endplate spondylosis of the thoracic spine. There is multilevel degenerative disc disease with loss of the disc space heights. No acute fracture or listhesis. Stable tiny left apical pneumothorax, remaining soft tissues are unchanged as compared to recent CT chest, abdomen and pelvis CT/Spine Thoracic without Contras IMPRESSION: No acute findings Electronically Signed: Boogie Crwo DO at 4:48 EDT ,
--- NOTE | 2022-06-03 03:30 | CT_ITS ---
STUDY: CT ABDOMEN AND PELVIS WITHOUT CONTRAST REASON FOR EXAM: Male, 81 years old. trauma RADIATION DOSAGE (If Supplied By Facility): CTDIvol = ( 15.70 ) mGy, DLP = ( 811.90 ) mGycm TECHNIQUE: Transaxial images were obtained from the dome of the diaphragm to the symphysis pubis without oral contrast, and without intravenous contrast. Sagittal and coronal images were reconstructed. Individualized dose optimization techniques were used for this CT. COMPARISON: None. FINDINGS: Mild left basilar atelectasis. The visualized portions of the heart are within normal limits. There is hepatomegaly with diffuse hepatic enlargement. There are surgical clips in the gallbladder fossa consistent with a prior cholecystectomy. There are multiple benign calcified granulomata of the spleen. Normal pancreas. Normal bilateral adrenal glands. Normal right kidney. Normal left kidney. Punctate bilateral nephroliths without obstruction. There is a small hiatal hernia. Normal small intestine. There are multiple colonic diverticula consistent with diverticulosis. There is non-visualization of the appendix. Fecal retention throughout the colon with gaseous distention as well. In the central mesentery, there is a soft tissue mass with dystrophic calcifications measuring 6.9 x 7.1 cm. Given the calcification pattern, suspect benign process. Normal abdominal aorta. Normal inferior vena cava. Normal retroperitoneum. Normal urinary bladder. Normal abdominal wall. There are diffuse degenerative changes of the visualized lumbar spine. Fusion hardware at L4-5. CT/Abdomen/Pelvis without Cont IMPRESSION: No acute traumatic findings. Punctate bilateral nephroliths without obstruction. Central mesenteric mass with dystrophic calcifications, given the calcification pattern, suspect benign process however, malignancy cannot be fully excluded. Recommend correlation with any prior imaging if available. Electronically Signed: Boogie Crow DO at 4:24 EDT ,
[2022-06-03 03:33] VITALS: BP 147/73; PULSE 65; RESP 19; O2SAT 100
[2022-06-03 03:52] LABS: Absolute Lymphocyte Count 0.53 X10^3/uL (0.83-4.51); Absolute Neutrophil Count 5.9 X10^3/uL (2.0-7.7); Basophil# 0.02 X10^3/uL; Basophil% 0.3 % (0-1); Eosinophil# 0.03 X10^3/uL; Eosinophils% 0.4 % (0-5); Hematocrit 26.2 % (40-54); Hemoglobin 8.5 g/dL (13.0-16.5); Lymphocyte # 0.53 X10^3/ul (0.83-4.51); Lymphocyte % 7.2 % (19-41); Mean Corp Hgb Conc 32.4 g/dL (32-36); Mean Corpuscular Hgb 29.1 pg (27.0-32.0); Mean Corpuscular Volume 89.7 fL (80-94); Mean Platelet Vol. 9.9 fl (6.2-12.0); Monocyte# 0.77 X10^3/uL; Monocyte% 10.5 % (0-10); NRBC Flagged by Analyzer 0 % (0-5); Neutrophil # 5.92 X10^3/uL (2.7-7.7); Neutrophil % 80.8 % (47-70); POSITIVE DIFFERENTIAL YES; Platelet Count 175 K/mm3 (150-450); RBC Distribution Width CV 13.2 % (11.6-14.6); RBC Distribution Width SD 43.3 fl (35.1-43.9); Red Blood Count 2.92 M/mm3 (4.6-6.2); White Blood Count 7.3 K/mm3 (4.4-11.0)
[2022-06-03 03:58] LABS: Differential Indicated SCAN CRITERIA MET
[2022-06-03 03:59] LABS: International Normalized Ratio 1.3; Partial Thromboplast Time 32.1 Seconds (24.1-36.2); Prothrombin Time (Protime)PT. 16.3 SECONDS (11.7-14.9)
[2022-06-03 04:03] VITALS: BP 158/79; PULSE 68; RESP 18; O2SAT 100
[2022-06-03 04:06] LABS: Anion Gap 5 (5-15); BUN 17 mg/dL (7-18); BUN/Creat Ratio 14.2 RATIO (10-20); Calcium,Total 7.8 mg/dL (8.5-10.1); Chloride 103 mmol/L (98-107); EST Glomerular Filtration Rate 62 mL/min (>60); Est Glom Filt Rate - Afr Amer 75 mL/min (>60); Estimated Creatinine Clearance 45.04 ml/min; Glucose 135 mg/dL (74-106); Sodium Level 136 mmol/L (136-145)
[2022-06-03 04:07] LABS: Differential Comment SCANNED
[2022-06-03] MEDS: fentaNYL 100 MCG/2 ML Ampul 50 MCG IV (04:46)
== END 2022-06-03 05:13 | disposition short-term general hospital (02) ==
PROVIDERS: Emergency Provider Emergency Medicine; PCP Family Medicine; Visit Provider Emergency Medicine
DX: S27.0XXA Traumatic pneumothorax, initial encounter (principal); I48.92 Unspecified atrial flutter; N18.32 Chronic kidney disease, stage 3b; I12.9 Hypertensive chronic kidney disease with stage 1 through stage 4 chronic kidney disease, or unspecified chronic kidney disease; S22.42XA Multiple fractures of ribs, left side, initial encounter for closed fracture; E78.5 Hyperlipidemia, unspecified; F32.A Depression, unspecified; I25.10 Atherosclerotic heart disease of native coronary artery without angina pectoris; Z79.01 Long term (current) use of anticoagulants; Z79.82 Long term (current) use of aspirin; Z79.899 Other long term (current) drug therapy; Z87.891 Personal history of nicotine dependence; W11.XXXA Fall on and from ladder, initial encounter; Y92.015 Private garage of single-family (private) house as the place of occurrence of the external cause
CPT/HCPCS: 70450; 71101; 71250; 72125; 72128; 72131; 73502; 74176; 80048; 85025; 85610; 85730; 96374; 96375; 96376; 99285; A4216; J2405

== ENCOUNTER → 2022-09-28 | Outpatient (CLI) | payer MEDICARE, OTHER, SELFPAY ==
[2022-09-28 18:01] LABS: Hematocrit 36.2 % (40-54); Hemoglobin 11.8 g/dL (13.0-16.5); Mean Corp Hgb Conc 32.6 g/dL (32-36); Mean Corpuscular Hgb 27.7 pg (27.0-32.0); Mean Platelet Vol. 10.5 fl (6.2-12.0); Platelet Count 201 K/mm3 (150-450); RBC Distribution Width CV 13.4 % (11.6-14.6); RBC Distribution Width SD 41.4 fl (35.1-43.9); Red Blood Count 4.26 M/mm3 (4.6-6.2); White Blood Count 6.3 K/mm3 (4.4-11.0)
[2022-09-28 18:14] LABS: Erythrocyte Sedimentation Rate 6 mm/hr (0-20)
[2022-09-28 18:16] LABS: ALB/GLOB Ratio 1.3 RATIO (0.9-2.4); AST(SGOT) 23 U/L (15-37); Alanine Aminotransfer ALT/SGPT 33 U/L (16-61); Albumin, Serum 3.1 g/dL (3.2-5.0); Alkaline Phosphatase 78 U/L (45-117); Anion Gap 7 (5-15); BUN 15 mg/dL (7-18); BUN/Creat Ratio 15.9 RATIO (10-20); CRP < 2.90 mg/L (0.0-3.0); Calcium,Total 8.4 mg/dL (8.5-10.1); Chloride 100 mmol/L (98-107); Creatinine, Serum 0.94 mg/dL (0.70-1.30); EST Glomerular Filtration Rate 82 mL/min (>60); Est Glom Filt Rate - Afr Amer 99 mL/min (>60); Globulin 2.4 g/dL (2.2-4.2); Glucose 98 mg/dL (74-106); Iron 31 ug/dL (65-175); Potassium 3.7 mmol/L (3.5-5.1); Protein, Total 5.5 g/dL (6.4-8.2); Sodium Level 135 mmol/L (136-145)
== END | disposition home or self-care (01) ==
LOC: MTLAB 15:49
PROVIDERS: PCP Family Medicine; Referring Provider Internal Medicine Gastroenterology; Visit Provider Internal Medicine Gastroenterology
DX: D50.9 Iron deficiency anemia, unspecified (principal); R63.4 Abnormal weight loss
CPT/HCPCS: 36415; 80053; 83540; 85027; 85652; 86140